=== PATIENT | female | born 1950 | race Caucasian/White ===

== ENCOUNTER 2020-08-10 14:46 | Emergency (ER) | payer MEDICARE, SELFPAY ==
[2020-08-10 14:53] VITALS: BP 147/74; PULSE 88; RESP 16; TEMP 36.8; O2SAT 100; BMI 38.4
[2020-08-10 15:40] LABS: Microscopic, Urine URINE MICROSCOPIC (MICROSCOPIC)
[2020-08-10 15:46] LABS: Appearance,Urine CLEAR (Clear); Bilirubin,Urine Negative (Negative); Blood, Urine Negative (Negative); Color,Urine YELLOW (Yellow); Glucose,Urine (UA) Negative (Negative); Ketones,Urine Negative (Negative); Leukocyte Esterase,Urine TRACE (Negative); Nitrate,Urine Negative (Negative); PH,Urine 5.5 (5.0-8.5); Protein,Urine Negative (Negative); Specific Gravity, Urine 1.015 (1.005-1.030); Urobilinogen,Urine 0.2 EU/dl (0.2)
[2020-08-10 15:47] LABS: Basophils % 0.6 % (0.1-2.0); Eosinophils # 0.1 K/mm3 (0.0-0.4); Eosinophils % 2.2 % (0.1-12.0); Hematocrit 26.2 % (37.0-47.0); Lymphocytes # 1.4 K/mm3 (0.7-4.5); Lymphocytes % 22.4 % (10-50); Mean Corpuscular HGB Conc 28.6 g/dL (31.8-35.4); Mean Corpuscular Hemoglobin 19.9 pg (27.0-31.2); Mean Corpuscular Volume 69.7 fl (81-99); Mean Platelet Volume 8.9 fl (7.4-10.4); Monocytes # 0.2 K/mm3 (0.1-1.0); Monocytes % 3.8 % (1.7-9.3); Neutrophils # 4.3 K/mm3 (1.8-7.8); Neutrophils % 71.1 % (37.0-80.0); Platelet Count 165 K/mm3 (142-424); Red Blood Count 3.77 M/mm3 (4.20-5.40); Red Cell Distribution Width 18.7 % (11.5-17.5); White Blood Count 6.1 K/mm3 (4.8-10.8)
[2020-08-10 15:49] LABS: Chloride 107 mmol/L (98-107); Hemoglobin 7.5 g/dL (12.2-16.2); Sodium 141 mmol/L (136-145)
[2020-08-10 15:50] LABS: Potassium 4.5 mmoL/L (3.5-5.1)
--- NOTE | 2020-08-10 15:50 | PC.NURSE ---
Dr. Prabhakar notified of critical hemoglobin
[2020-08-10 15:52] LABS: Alanine Aminotransferase 14 U/L (12-78); Alkaline Phosphatase 71 U/L (38-126); Aspartate Amino Transferase 32 U/L (14-36); Bilirubin,Total 0.5 mg/dl (0.2-1.3); Blood Urea Nitrogen 11 mg/dl (7-17); Creatinine Clearance Estimated 79 mL/min (50-200); Estimated Glomerular Filt Rate 83 ml/min (>60); GFR (African American) 100 ML/MIN (>60)
[2020-08-10 15:53] LABS: Albumin Level 4.5 g/dl (3.5-5.0); Albumin/Globulin Ratio 1.5 (1.1-1.8); Anion Gap 12.5 mEq/L (5-15); Calcium 9.6 mg/dl (8.4-10.2); Carbon Dioxide 26 mmol/L (22.0-30.0); Glucose 84 mg/dl (74-100); Total Protein,Serum 7.5 g/dl (6.3-8.2)
--- NOTE | 2020-08-10 16:07 | CT_ITS ---
PROCEDURE INFORMATION: Exam: CTA Abdomen and Pelvis With Contrast Exam date and time: 08/10/2020 4:07 PM Age: 69 years old Clinical indication: Other: Back pain; Prior surgery; Additional info: Back pain, low hb, eval for aaa TECHNIQUE: Imaging protocol: Computed tomographic angiography of the abdomen and pelvis with contrast material. 3D rendering (Not supervised by radiologist): MIP and/or 3D reconstructed images were created by the technologist. Radiation optimization: All CT scans at this facility use at least one of these dose optimization techniques: automated exposure control; mA and/or kV adjustment per patient size (includes targeted exams where dose is matched to clinical indication); or iterative reconstruction. Contrast material: ISO; Contrast volume: 100 ml; Contrast route: INTRAVENOUS (IV); COMPARISON: No relevant prior studies available. FINDINGS: Lungs: Patchy subsegmental atelectasis or scarring in the visualized lower lungs, but no focal consolidation. Heart: Cardiomegaly. Coronary artery calcifications. Aorta: There is no abdominal aortic aneurysm. No evidence of aortic dissection. Mild scattered atherosclerotic plaques in the abdominal aorta. Celiac trunk and mesenteric arteries: There is a transverse linear focus of hypoenhancement in proximal celiac artery series 2 images 170-173, sagittal series 602, images 64 -65, of uncertain etiology. This could be an area of kinking, a thin band of chronic organized fibrinous clot, or possibly a streak artifact, as there is no other atherosclerotic disease seen in the celiac artery. The superior and inferior mesenteric arteries are patent with no high-grade stenosis. 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 The larger, upper artery is widely patent with no stenosis or occlusion. Very tiny accessory artery immediately inferior to this appears patent; hypoenhancement at the origin may be artifact from volume averaging rather than true stenosis, the artery is less than 2 mm diameter, see series 2, images 201-202. There is a small amount of plaque at the origin of the left renal artery coronal series 601, image 40, very mild narrowing less than 50%. Right iliac arteries: Mild plaques in the right common iliac artery and right internal iliac artery, minimal narrowing, less than 50%. No high-grade stenoses or occlusions. Right external iliac artery is unremarkable. Some minimal plaque in the right common femoral artery, very mild narrowing less than 50%. Left iliac arteries: Small plaques in the left common femoral artery, minimal plaques in the internal and external iliac arteries. No high-grade stenoses or occlusions. Mild plaque in the left common femoral artery, very mild narrowing less than 50%. Liver: Upper normal liver size. No mass. Gallbladder and bile ducts: Cholecystectomy clips. Biliary tree is within normal limits. No calcified stones. Pancreas: Fatty atrophic changes in the pancreas. No ductal dilatation or mass. Spleen: Splenomegaly, 15.6 cm series 2, image 161. Adrenal glands: The adrenal glands are normal. Kidneys and ureters: No hydronephrosis, hydroureter, or obstructing calcified ureteral stones. Minimal nonspecific bilateral perinephric soft tissue stranding. No suspicious mass. Likely distended left lower pole calyx coronal series 601, image 42 and axial series 2 image 247, less likely peripelvic cyst, not accurately differentiated without delayed scans. Stomach and bowel: There is no evidence of intestinal perforation or obstruction. The stomach is empty and contracted which likely accounts for thickened appearance; differential would be gas
--- NOTE | 2020-08-10 16:09 | [facility].EDGENADL ---
ED Disposition Clinical Impression: Pyelonephritis, Microcytic anemia Disposition: Home, Self-Care Condition on Discharge: Good Additional Instructions: call your primary doctor for reevaluation and reassessment of your anemia in one week. call GI to schedule an appointment for a colonoscopy to rule out malignancy as cause of your anemia. return to the ER if symptoms worsen Prescriptions: Ferrous Sulfate [Ferrous Sulfate 325mg Tab] 325 mg PO DAILY #30 tab Prescription Printed Cefdinir [Omnicef 300mg Capsule] 300 mg PO BID #14 cap Prescription Printed Referrals: Cris Lazaro APRN [Primary Care Provider] - Evert Kirk MD [Staff Physician] - - Critical Care Critical Care Time: No Attestation: On 08/10/20, the high probability of a clinically significant, sudden or life threatening deterioration of the following system(s) required my full and direct attention, intervention and personal management. The time I documented below is in addition to time spent performing reported procedures but includes the following listed in this critical care notation. Medical Decision Making - Medical Records Medical records reviewed: Yes: I reviewed the patient's medical records. - Kendrick Inquiry Pt receiving controlled substance: No Vital Signs: 08/10/20 14:53 Temperature 98.3 F Temperature Source Oral Pulse Rate [Left Radial] 88 Respiratory Rate 16 Blood Pressure [Left Arm] 147/74 H Blood Pressure Mean [Left Arm] 98 Blood Pressure Source [Left Arm] Automatic Cuff Blood Pressure Position [Left Arm] Sitting 02 Sat by Pulse Oximetry 100 Oxygen Delivery Method Room Air - Lab Data Lab Results 08/10/20 13:25: WBC 6.1, RBC 3.77 L, Hgb 7.5 L*, Hct 26.2 L, MCV 69.7 L, MCH 19.9 L, MCHC 28.6 L, RDW 18.7 H, Plt Count 165, MPV 8.9, Neut % (Auto) 71.1, Lymph % (Auto) 22.4, [place] % (Auto) 3.8, Eos % (Auto) 2.2, Baso % (Auto) 0.6, Neut # (Auto) 4.3, Lymph # (Auto) 1.4, [place] # (Auto) 0.2, Eos # (Auto) 0.1, Baso # (Auto) 0.0 08/10/20 13:25: Sodium 141, Potassium 4.5, Chloride 107, Carbon Dioxide 26, Anion Gap 12.5, BUN 11, Creatinine 0.70, Estimated Creat Clear 79, Estimated GFR 83, Est GFR ( Amer) 100, Glucose 84, Calcium 9.6, Total Bilirubin 0.5, AST 32, ALT 14, Alkaline Phosphatase 71, Total Protein 7.5, Albumin 4.5, Globulin 3.0, Albumin/Globulin Ratio 1.5 08/10/20 14:54: Urine Color Yellow, Urine Appearance Clear, Urine pH 5.5, Ur Specific [place] 1.015, Urine Protein Negative, Urine Glucose (UA) Negative, Urine Ketones Negative, Urine Blood Negative, Urine Nitrate Negative, Urine Bilirubin Negative, Urine Urobilinogen 0.2, Ur Leukocyte Esterase Trace, Urine RBC None, Urine WBC 3-5, Ur Squamous Epith Cells Occasional, Urine Bacteria Trace 08/10/20 16:28: Blood Type O Positive, Antibody Screen Negative Result diagrams: 08/10/20 13:25 08/10/20 13:25 Orders (Tests/Meds): ED MEDICATIONS Generic Name Dose Route Start Last Admin Trade Name Freq PRN Reason Stop Dose Admin Ceftriaxone Sodium 1 gm/ 50 mls @ 100 mls/hr 08/10/20 18:15 Sodium Chloride IV 08/24/20 18:14 Q24H MARCELO Protocol Discontinued Medications Generic Name Dose Route Start Last Admin Trade Name Freq PRN Reason Stop Dose Admin Iopamidol 100 ml 08/10/20 16:47 08/10/20 16:48 Iopamidol-370 (76%);100ml Bottle IV 08/10/20 16:48 100 ml ONCE ONE Administration Sodium Chloride 40 ml 08/10/20 16:47 08/10/20 16:48 0.9 % Sodium Chloride 50 Ml Vial IV 08/10/20 16:48 40 ml ONCE ONE Administration Sodium Chloride 10 ml 08/10/20 16:47 08/10/20 16:48 Sodium Chloride 0.9% 10ml Syr (Rad Only) IV 08/10/20 16:48 10 ml ONCE ONE Administration Medical Decision Narrative: Patient appears well, hemodynamically stable. Mild right lower quadrant tenderness on exam. Differential includes appendicitis versus AAA versus pyelonephritis versus kidney stone. Patient's hemoglobin came back at 7.5, it is microcytic
[2020-08-10 16:10] LABS: Bacteria,Urine Trace /lpf; Squamous Epithelial Cell,Urine Occasional #/hpf (0-5)
[2020-08-10 18:45] VITALS: BP 126/51; PULSE 70; RESP 18; TEMP 36.7; O2SAT 100
== END 2020-08-10 18:45 | disposition home or self-care (01) ==
PROVIDERS: Emergency Provider Emergency Medicine; PCP Nurse Practitioner Family
DX: N12 Tubulo-interstitial nephritis, not specified as acute or chronic (principal); D50.9 Iron deficiency anemia, unspecified
CPT/HCPCS: 74174; 80053; 81001; 85025; 86850; 96365; 99283; Q9967

== ENCOUNTER 2022-10-11 11:34 | Emergency (ER) | payer MEDICARE, SELFPAY ==
[2022-10-11 11:35] VITALS: BP 139/73; PULSE 89; RESP 18; TEMP 36.8; O2SAT 98; BMI 38.4
--- NOTE | 2022-10-11 12:01 | EXP.UTC ---
Discharge Plan Disposition Patient Disposition: Home, Self-Care Condition: Good Prescriptions Prescriptions: New phenazopyridine [Pyridium] 200 mg tablet 200 mg PO Q8H 2 Days Qty: 6 0RF ciprofloxacin HCl [Cipro] 500 mg tablet 500 mg PO BID 7 Days Qty: 14 0RF ondansetron 4 mg Tablet,Disintegrating 4 mg PO Q8H PRN (Reason: Nausea) Qty: 12 0RF No Action losartan 50 mg tablet 50 mg PO DAILY Patient Comments: TAKE 1 TABLET BY MOUTH EVERY DAY metformin 500 mg tablet 500 mg PO DAILY Patient Comments: TAKE 1 TABLET BY MOUTH EVERY DAY simvastatin 40 mg tablet 40 mg PO DAILY Patient Comments: TAKE 1 TABLET BY MOUTH EVERYDAY AT BEDTIME glimepiride 4 mg tablet 4 mg PO BID Patient Comments: TAKE 1 TABLET BY MOUTH TWICE A DAY omeprazole 20 mg capsule,delayed release(DR/EC) 20 mg PO DAILY Patient Comments: TAKE 1 CAPSULE BY MOUTH EVERY DAY Referrals Follow up/Referrals: Provider,Referral, MD [Primary Care Provider] - See instructions Activity Restrictions/Add. Instructions Additional Instructions/Restrictions: Drink plenty of fluids. Take tylenol or ibuprofen for pain or fever. Take the medications as directed. Follow up with your regular doctor. GO TO THE ER FOR ANY WORSENING SYMPTOMS Stop the Azo that you are taking and start the pyridium that we prescribed. These are very similar medications. The zofran (ondesetron) is for just in case the medication upsets your stomach. The pyridium will make your urine turn orange, this is an expected side effect. It will stain your clothes if it comes into contact with them. We will culture the urine. That will tell what bacteria is causing your infection and which antibiotics will treat it best. Sometimes the first antibiotic we prescribe turns out to not work against different bacteria. So, make sure you follow up within 3 days if you are not getting better. Clinical Impressions Clinical Impression: Acute UTI Instructions Patient Instructions: Urine Culture, DI for Urinary Tract Infection (UTI), Ondansetron, Phenazopyridine, Ciprofloxacin Discharge ED Provider: Christo Shaw [facility] [place] General Stated complaint: frequency,pain when urinating Time Seen by Provider: 10/11/22 12:01 History of Present Illness Provider Complaint: She states that for the past 4 days she has had low back pain, dysuria, and urinary frequency. She has a history of getting uti's. She states that what she feels like she has now. She denies other symptoms. Related Data Home Medications Medication Instructions Recorded Confirmed glimepiride 4 mg tablet 4 mg PO BID . 10/11/22 10/11/22 losartan 50 mg tablet 50 mg PO DAILY . 10/11/22 10/11/22 metformin 500 mg tablet 500 mg PO DAILY . 10/11/22 10/11/22 omeprazole 20 mg capsule,delayed 20 mg PO DAILY . 10/11/22 10/11/22 release simvastatin 40 mg tablet 40 mg PO DAILY . 10/11/22 10/11/22 Previous Rx's Medication Instructions Recorded ciprofloxacin HCl 500 mg tablet 500 mg PO BID 7 days #14 tabs 10/11/22 (Cipro) ondansetron 4 mg disintegrating 4 mg PO Q8H PRN Nausea #12 tabs 10/11/22 tablet phenazopyridine 200 mg tablet 200 mg PO Q8H 2 days #6 tabs 10/11/22 (Pyridium) Allergies Allergy/AdvReac Type Severity Reaction Status Date / Time No Known Allergies Allergy Verified 10/11/22 12:16 [facility] Disclaimer: The information contained in this section may have been updated after the patient was seen, as this information can be updated by other users. Social History Smoking Status: Never smoker alcohol intake: never current occupational status: retired Travel in the last 8 weeks: None ROS Obtained: Yes All systems reviewed & no additional complaints except as documented Constitutional Constitutional: Reports system reviewed and no additional complaints, except as documented, Denies chills and Denies fever(s) Eyes
[2022-10-11 12:10] LABS: Microscopic, Urine URINE MICROSCOPIC (MICROSCOPIC)
[2022-10-11 12:14] LABS: Appearance,Urine CLEAR (Clear); Blood, Urine Negative (Negative); Color,Urine ORANGE (Yellow); Glucose,Urine (UA) TRACE (Negative); Ketones,Urine Negative (Negative); Leukocyte Esterase,Urine Negative (Negative); Nitrate,Urine POSITIVE (Negative); Protein,Urine Negative (Negative); Specific Gravity, Urine >= 1.030 (1.005-1.030)
[2022-10-11 12:17] LABS: Bilirubin,Urine Negative (Negative)
[2022-10-11 12:26] VITALS: BP 139/73; PULSE 89; RESP 18; TEMP 36.8; O2SAT 98
[2022-10-11 12:36] LABS: WBC,Urine Occasional #/hpf (0-3)
[2022-10-11 12:37] LABS: Bacteria,Urine 1+ /lpf; Hyaline Casts,Urine Occasional #/lpf (0)
== END 2022-10-11 12:26 | disposition home or self-care (01) ==
PROVIDERS: Emergency Provider Nurse Practitioner Family
DX: N39.0 Urinary tract infection, site not specified (principal); M54.59 Other low back pain; B96.89 Other specified bacterial agents as the cause of diseases classified elsewhere
CPT/HCPCS: 81001; 87086; 99204; 99212; G0463